=== PATIENT | female | born 1950 | race African-American/Black ===

== ENCOUNTER 2017-11-06 13:22 | Inpatient (IN) | payer MEDICARE, MEDICAID ==
[~2017-11-06 13:22] MED LIST: ISOVUE-370 76%-LOCM 1 ML ONE
[2017-11-06 15:00] LABS: Hematocrit 35.8 % (36.0-47.0); Mean Platelet Volume 9.2 fL (7.4-10.4); Red Blood Cell (RBC) Count 3.43 mill/uL (4.20-5.40); White Blood Cell (WBC) Count 5.5 thou/uL (4.8-10.8)
[2017-11-06 15:05] LABS: Lactic Acid - Sepsis 0.9 mmol/L (0.5-2.2)
[2017-11-06 15:10] LABS: ALT (SGPT) 9 U/L (8-55); AST (SGOT) 19 U/L (5-34); Alkaline Phosphatase 58 U/L (40-150); Anion Gap 12 mmol/L (10-20); BUN (Urea Nitrogen) 15 mg/dL (9.8-20.1); Bilirubin, Total 0.5 mg/dL (0.2-1.2); Calc. Creatinine Clearance 0 mL/min (70-130); Calcium 9.1 mg/dL (7.8-10.44); Carbon Dioxide 29 mmol/L (23-31); Chloride 105 mmol/L (98-107); Estimated GFR-MDRD Greater than 90; Globulin 4.4 g/dL (2.4-3.5); Protein, Total 8.1 g/dL (6.0-8.3)
[2017-11-06 15:14] LABS: Bilirubin Negative (Negative); Blood, Urine Negative (Negative); Glucose, Urine (Dipstick) Negative (Negative); Ketone, Urine Negative (Negative); Nitrite Negative (Negative); Protein, Urine (Dipstick) Negative (Neg-Trace); Urobilinogen 0.2 mg/dL (0.2-1.0)
[2017-11-06 15:16] LABS: Macrocytosis SLIGHT = 6-15 cells (100X) (0-5/hpf); Neutrophil 72 % (42-75); Polychromasia SLIGHT = 2-3 cells (100X) (0-2/hpf); Reactive Lymphocytes 2 % (0-10)
[2017-11-06 15:23] LABS: Troponin I Less than 0.010 ng/mL (< 0.028)
--- NOTE | 2017-11-06 15:50 | CT ---
CT ABDOMEN AND PELVIS WITH IV CONTRAST: History: Abdominal pain. Comparison: 03-08-13 FINDINGS: Small hiatal hernia is apparent. There is atelectasis at each lung base. Cysts arise from the cortex of each kidney. Liver, spleen, adrenal glands, and pancreas are within normal limits. Moderate distention of the colon primarily consists of gas with some fluid present. Small bowel does not appear to be dilated. IMPRESSION: 1. Gaseous distention with the appearance hypomotility of the colon. No evidence of high grade bowel obstruction. 2. Hiatal hernia. POS: [facility]
[2017-11-06] MEDS ORDERED: Benzocaine 20% Spray 60 ML CAN ONE (16:50)
--- NOTE | 2017-11-06 18:30 | RAD ---
PORTABLE CHEST 11/06/17 PROVIDED CLINICAL HISTORY: Abdominal distention. FINDINGS: Comparison is made with the study dated 03/07/13 and enteric catheter is present, tip of which project s in the region of the left upper quadrant. An enteric catheter is present, tip of which projects in the region of the left upper quadrant. There is conspicuous gaseous distention of bowel in a generali zed nonspecific manner. Please correlate with recently performed CT examination. The cardiomediastina l silhouette is unchanged in appearance. Atherosclerosis is seen. No focal consolidation, pleural flu id, or pneumothorax evident. IMPRESSION: 1. No evidence for an acute cardiopulmonary process. 2. Conspicuous gaseous distention of bowel. POS: [facility]
[2017-11-06] MEDS ORDERED: Acetaminophen 325 MG TAB PO PRN (20:10)
[2017-11-06] MEDS ORDERED: Ondansetron ODT 4 MG TAB SL PRN (20:10)
[2017-11-06] MEDS ORDERED: Ondansetron HCl/PF 4 MG/2 ML Vial IVP PRN (20:10)
[2017-11-06] MEDS: Lactated Ringer's 1,000 ML IV SCH (20:36)
[2017-11-06 21:59] VITALS: BMI 17.5
--- NOTE | 2017-11-07 | CON ---
DATE OF CONSULTATION: 11/06/2017 CHIEF COMPLAINT: Abdominal distention. HISTORY OF PRESENT ILLNESS: Ms. Graves is a 67-year-old long term patient who is noncommunicative . She was brought in for abdominal bloating. 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 She is unable to give any history, so history is obtained through co nversation with ER physician and chart review. There is no history from the long term of nausea, vomiting, fevers, or chills. She apparently had a bowel movement 2 days ago that was normal, but has been taking less in oral intake and more bloated according to the long term. PAST MEDICAL HISTORY: Hepatitis B, lifelong aphasia and developmental delay, hypertension, GERD, con stipation, and Amarilys's. PAST SURGICAL HISTORY: Tracheostomy and PEG tube placement. Also, history of exploratory laparotomy and repair of gastrostomy after PEG tube became displaced with later dehiscence of the abdominal wou nd and take back for closure. She has had colonoscopy and colon decompression tube placement as well . SOCIAL HISTORY: She is a resident of the long term in [place] and she is nonambulatory and nonver bal. No history of alcohol, drug, or tobacco use. FAMILY HISTORY: Not known. ALLERGIES: No known drug allergies. MEDICATIONS: According to the ER notes include Dulcolax suppositories twice daily, Lasix, potassium, vitamin D, Norvasc, Coreg, Klonopin, TwoCal HN, and Remeron. REVIEW OF SYSTEMS: Unobtainable. PHYSICAL EXAMINATION: VITAL SIGNS: Patient is afebrile in the emergency room with a normal heart rate and normal blood pre ssure. She has normal saturations on room air and is not tachypneic. GENERAL: Reveals a noncommunicative patient moaning in bed, but in no apparent acute distress. She is not flushed or toxic in appearance. She is not jaundiced or icteric. HEENT: Unremarkable. NECK: Stiff, but has no adenopathy or thyroid masses and she does move it spontaneously. HEART: Regular in its rate and rhythm without murmurs, rubs, or gallops. LUNGS: Clear, although due to frequent localization and breath sounds are somewhat difficult to appr eciate. ABDOMEN: Soft but distended. She has an NG tube in place with some slightly bloody appearing fluid draining. She has a healed laparotomy scar with a soft reducible hernia, which does not elicit any t enderness to palpation. Bowel sounds are present. She is tympanitic, but does not exhibit any obvio us pain with palpation. No rigidity, rebound, or guarding. NEUROLOGIC: Patient is noncommunicative, does not follow commands or answer questions. PSYCHIATRIC: Unable to assess. LABORATORY DATA AND X-RAY FINDINGS: White count is normal, hematocrit 35, platelets 147. Electrolyt es are unremarkable. Lipase and LFTs are normal. CK, CK-MB, and troponin are normal. C-reactive pr otein is mildly elevated at 0.98 and UA is clear. CT of the abdomen and pelvis is reviewed and I agr ee with the written report. The patient has gaseous distention of the colon without evidence of obst ruction. She has some stool scattered throughout her colon and some liquid stool on the right side p er rectum has stool and gas in it. She has a small hiatal hernia and moderate distention of the stom ach. Small bowel is not obviously dilated, although it is somewhat difficult to distinguish small lula wel from colon, most of the distended loops of bowel appeared to be colonic. ASSESSMENT: Likely Golf's is in a patient with history of this in the past. Recommend GI consult ation and no indications for surgery at this time, but if her condition deteriorates, please contact me.
[2017-11-07] MEDS: Lactated Ringer's 1,000 ML IV SCH (04:48)
[2017-11-07] MEDS: Dextrose 5 %-0.45 % NaCl 1,000 ML IV SCH (12:30)
--- NOTE | 2017-11-07 16:30 | CON ---
DATE OF CONSULTATION: 11/07/2017 HISTORY OF PRESENT ILLNESS: The patient is a 67-year-old female who is nonverbal, a jail resident, who presented with decreased appetite according to jail, who was note d abdominal distention. There has been no nausea or vomiting prior to her visit to the emergency batool m, she did not have a bowel movement in a day and half. The one she did have the day and a half prio r was normal and nonbloody. She has been evaluated in the past by Dr. Gage in 2012. At that time, chronic pseudoobstruction was noted and the patient did undergo a colonoscopy and the colonoscope was advanced to the distal transverse, no abnormalities were noted. A colonic decompression tube was pl aced. PAST MEDICAL/SURGICAL HISTORY: Includes mental retardation, osteoarthritis, gastroesophageal reflux disease, chronic hepatitis B, hypertension. PAST MEDICAL HISTORY: Includes exploratory lap dehiscence, G-tube dislodgement and a tracheostomy. ALLERGIES: No known medical allergies. MEDICATIONS: Include Bisacodyl 10 mg per rectum b.i.d., Lasix 20 mg every day, potassium chloride 10 mEq once a day, vitamin D3 1000 units every day, Norvasc 10 mg p.o. every day, Coreg 6.25 mg p.o. b. i.d., Klonopin 0.5 mg t.i.d., Remeron 15 mg p.o. daily. SOCIAL HISTORY: She is a jail resident. FAMILY HISTORY AND REVIEW OF SYSTEMS: Unobtainable. PHYSICAL EXAMINATION: GENERAL: Shows a thin, cachectic -[place]er female who is nonverbal. VITAL SIGNS: Temperature 99.5, pulse 82, respiratory rate 16, blood pressure 116/77. HEENT: Shows poor dentition. NECK: Supple. CHEST: Clear. CARDIOVASCULAR: Regular rate and rhythm. ABDOMEN: Slightly distended, diffusely tympanitic. Bowel sounds are present and hypoactive. There is a well-healed surgical scar. RECTAL: Shows soft stool in the vault. It seems to be somewhat dilated. EXTREMITIES: Show contractures. IMAGING: Abdominal and pelvic CT shows gaseous distention of the entire colon. No small-bowel obstr uction is noted. A hiatal hernia was seen as well. Chest x-ray was negative. Laboratory shows a wh ite blood cell count of 5.5, hemoglobin 11.6, hematocrit 35.5, MCV of 104, platelet count 147. Chemi stry panel is normal with a normal albumin level. Urinalysis is normal. ASSESSMENT: Chronic pseudoobstruction of the colon - this is a chronic problem and does not seem to be acutely changed. The fact that the patient has decreased appetite could be from a number of etiol ogies. The patient is not having nausea, vomiting, and continues to have bowel movements, I think sh e is in stable condition. RECOMMENDATIONS: 1. Continue bisacodyl. 2. PEG tube placement if the patient shows signs of malnutrition or continues to lose weight. 3. We will follow with you.
[2017-11-07] MEDS ORDERED: Acetaminophen 650 MG Suppository PR PRN (18:41)
[2017-11-08] MEDS: Dextrose 5 %-0.45 % NaCl 1,000 ML IV SCH ×3 (00:25→17:43)
[2017-11-08 05:32] LABS: #Lymphocytes 1.7 thou/uL (1.20-3.40); #Monocytes 0.4 thou/uL (0.11-0.59); #Neutrophils 3.9 thou/uL (1.40-6.50); %Eosinophils 0.6 % (0.0-10.0); %Lymphocytes 28.1 % (21.0-51.0); %Monocytes 6.3 % (0.0-10.0); Mean Platelet Volume 8.6 fL (7.4-10.4)
[2017-11-08 06:00] LABS: Anion Gap 11 mmol/L (10-20); BUN (Urea Nitrogen) 8 mg/dL (9.8-20.1); Calc. Creatinine Clearance 63 mL/min (70-130); Calcium 8.1 mg/dL (7.8-10.44); Carbon Dioxide 19 mmol/L (23-31); Chloride 105 mmol/L (98-107); Estimated GFR-MDRD Greater than 90
--- NOTE | 2017-11-08 06:09 | HP ---
DATE OF ADMISSION: 11/06/2017 REASON AND CHIEF COMPLAINT: Abdominal pain and distention. HISTORY OF PRESENT ILLNESS: Ms. Graves is a 67-year-old -[place] female with a past medical history of mental retardation, hypertension, chronic hepatitis B, now has a history of respiratory fa ilure, and was found to have abdominal distention and pain. The patient complained of abdominal pain . The patient's nurse went and evaluated and found the abdomen was markedly distended and that is norman rd to palpate. The nurse stated it was felt like a rock and she had constipation for a couple of day s. The patient has history of a gastrostomy tube, and bowel sounds were absent, so nurse felt the kalie mishra possibly has colonic intestinal obstruction with this abdominal pain, distention, and so she wa s sent to the emergency room for evaluation. In the ER, the patient was found to have markedly diste nded abdomen. CT scan of the abdomen showed distended colon. The patient was initially placed on an NG tube and it was removed and the patient was admitted for further evaluation and management. The patient received IV fluids. PAST MEDICAL HISTORY: 1. Hypertension. 2. Hyperlipidemia. 3. Severe mental retardation. 4. Osteoarthritis. 5. Gastroesophageal reflux disease. 6. Chronic hepatitis B. 7. Chronic pseudoobstruction of colon. 8. Status post colonoscopy with decompression in 2012. 9. History of respiratory failure, status post tracheostomy, removal of tracheostomy later. PAST SURGICAL HISTORY: Status post tracheostomy removal, status post PEG tube placement and removal later, and status post exploratory laparotomy. CURRENT MEDICATIONS: The patient is on Dulcolax suppositories daily, Lasix 20 mg daily, KCl 10 mEq d aily, vitamin D daily, Norvasc 10 mg daily, Coreg 6.25 b.i.d., Klonopin 0.5 three times daily, Remero n 15 mg daily. ALLERGIES: NKDA. FAMILY HISTORY: Nothing of interest. SOCIAL HISTORY: The patient is a resident of a care home. No history of smoking. No history of alcohol intake. REVIEW OF SYSTEMS: Unable to obtain. The patient has severe mental retardation and not communicatin g. PHYSICAL EXAMINATION: GENERAL: The patient is alert, awake, and not oriented. VITAL SIGNS: Temperature 99, pulse 82, respirations 20, blood pressure 114/60. HEENT: Head is normocephalic, atraumatic. Pupils are equal and reactive to light. Nasopharynx is p bradley and dry. NECK: Supple. No JVD. LUNGS: Bilateral air entry present. No rales, no rhonchi. HEART: S1 and S2 regular. ABDOMEN: Soft, mildly distended, tympanitic, mildly tender diffusely. Bowel sounds absent. Surgica l scar present. CENTRAL NERVOUS SYSTEM: No focal deficit. LABORATORY AND X-RAY FINDINGS: CBC shows WBC of 5.5, hemoglobin 11.7, hematocrit 35, platelets 147. Metabolic panel: Sodium 148, potassium 4.4, chloride 105, CO2 of 29, urea nitrogen 15, creatinine 0 .6, glucose 81. C-reactive protein 0.98. CK-MB 0.9. Troponin I less than 0.010. Urinalysis negati ve. Chest x-ray negative. CT scan of the abdomen showed gaseous distention of the colon. No eviden ce of high-grade bowel obstruction. ASSESSMENT: 1. Pseudoobstruction of the colon, possibly chronic. 2. Abdominal pain and distention secondary to pseudoobstruction of the colon. 3. Hypertension. 4. Mental retardation. 5. Chronic hepatitis B. 6. Osteoarthritis. 7. Gastroesophageal reflux disease. PLAN: 1. Vital signs q.4 hours. 2. Activity: As tolerated. 3. Allergies: NKDA. 4. Diet: N.p.o. 5. IV fluids D5 half normal at 100 mL per hour. 6. GI consult. 7. List of care home medications.
--- NOTE | 2017-11-08 08:06 | RAD ---
SUPINE AND LEFT DECUBITUS VIEWS ABDOMEN: DATE: 11/08/17. COMPARISON: Comparison is made to a previous CT abdomen from 11/06/17. FINDINGS: Two views abdomen demonstrate a large amount of stool seen in the colon. Abnormally dilated loops of small bowel and colon are seen. No definite evidence of significant air fluid level is seen. IMPRESSION: Large amount of stool in the colon possibly representing severe constipation. Could this be the caus e of the patient's bowel dilatation? No definite evidence of significant air fluid levels seen. POS: [facility]
[2017-11-08] MEDS: Bisacodyl 10 MG SUPP PR SCH (10:49)
[2017-11-08] MEDS ORDERED: Magnesium Citrate 300 ML BOT PO SCH (12:45)
--- NOTE | 2017-11-08 17:37 | PRG ---
DATE OF SERVICE: 11/08/2017 SUBJECTIVE: The patient adds nothing to history of present illness. She is nonverbal. OBJECTIVE: VITAL SIGNS: Temperature 98.1, pulse 72, respiratory rate 22, blood pressure 124/68. CHEST: Clear. CARDIOVASCULAR: Regular rate and rhythm. ABDOMEN: Slightly distended and tympanitic diffusely. Bowel sounds are present and normoactive. St ool occult blood is negative. LABORATORY AND IMAGING DATA: Sodium is 131, CO2 of 19, BUN 8, creatinine 0.58 and glucose 119. Whit e blood cell count was 6.0, hemoglobin 10 and hematocrit 31. Abdominal x-ray from today showed a lar ge amount of stool in the colon, possibly representing severe constipation. No air fluid levels. ASSESSMENT: 1. Chronic pseudoobstruction. 2. Constipation. 3. Mental retardation. RECOMMENDATIONS: 1. Agree with the magnesium citrate. 2. Dr. Ceja covering the weekend. Call if needed.
[2017-11-08] MEDS: Bisacodyl 5 MG TAB PO SCH (20:08)
[2017-11-08] MEDS: Carvedilol 6.25 MG TAB PO SCH (20:08)
[2017-11-08] MEDS: Mirtazapine 15 MG TAB PO SCH (20:09)
[2017-11-08] MEDS: clonazePAM 0.5 MG TAB PO SCH (20:09)
[2017-11-09] MEDS: Dextrose 5 %-0.45 % NaCl 1,000 ML IV SCH ×3 (03:33→21:31)
[2017-11-09] MEDS: Carvedilol 6.25 MG TAB PO SCH ×2 (08:11→20:25)
[2017-11-09] MEDS: Bisacodyl 5 MG TAB PO SCH ×2 (08:11→20:24)
[2017-11-09] MEDS: Polyethylene Glycol 3350 17 GM Packet PO SCH (08:12)
[2017-11-09] MEDS: Bisacodyl 10 MG SUPP PR SCH (08:12)
[2017-11-09] MEDS: clonazePAM 0.5 MG TAB PO SCH ×3 (08:12→20:25)
[2017-11-09] MEDS: Mirtazapine 15 MG TAB PO SCH (20:26)
[2017-11-10 08:39] VITALS: BP 125/75; TEMP 98
[2017-11-10] MEDS ORDERED: Amlodipine 5 MG TAB PO SCH (09:00)
[2017-11-10] MEDS: Polyethylene Glycol 3350 17 GM Packet PO SCH (09:50)
[2017-11-10] MEDS: Carvedilol 6.25 MG TAB PO SCH (09:50)
[2017-11-10] MEDS: Bisacodyl 5 MG TAB PO SCH (09:50)
[2017-11-10] MEDS: Bisacodyl 10 MG SUPP PR SCH (09:50)
[2017-11-10] MEDS: clonazePAM 0.5 MG TAB PO SCH (09:50)
== END 2017-11-10 12:28 | DRG 389 ==
LOC: ERS 13:22 → T4-B 18:05
PROVIDERS: ADMIT Internal Medicine; ATTEND Internal Medicine
DX: K56.609 Unspecified intestinal obstruction, unspecified as to partial versus complete obstruction (principal); B18.1 Chronic viral hepatitis B without delta-agent; R47.01 Aphasia; I10 Essential (primary) hypertension; F79 Unspecified intellectual disabilities; M19.90 Unspecified osteoarthritis, unspecified site; K21.9 Gastro-esophageal reflux disease without esophagitis; K59.00 Constipation, unspecified; R62.50 Unspecified lack of expected normal physiological development in childhood
CPT/HCPCS: 36415; 36416; 71010; 74020; 74177; 80048; 80053; 81003; 82274; 82553; 83605; 83690; 84484; 85025; 86140; 87086; 93005; 96360; A4353; G8996-GN-CL; G8997-GN-CL

== ENCOUNTER 2017-12-30 18:51 | Inpatient (IN) | payer MEDICARE, MEDICAID ==
[2017-12-30 19:49] LABS: #Eosinphils 0.1 thou/uL (0.0-0.7); #Lymphocytes 1.6 thou/uL (1.20-3.40); #Monocytes 0.4 thou/uL (0.11-0.59); #Neutrophils 2.8 thou/uL (1.40-6.50); %Basophils 0.9 % (0.0-1.0); %Lymphocytes 32.3 % (21.0-51.0); %Monocytes 8.7 % (0.0-10.0); %Neutrophils 56.2 % (42.0-75.0); Hemoglobin 12.5 g/dL (12.0-16.0); Mean Corpuscular HGB CONC 31.8 g/dL (32.0-36.0); Mean Platelet Volume 9.3 fL (7.4-10.4); Platelet Count 155 thou/uL (130-400); RBC Distribution Width 11.5 % (11.5-14.5); Red Blood Cell (RBC) Count 3.69 mill/uL (4.20-5.40)
[2017-12-30 20:00] LABS: Bilirubin Negative (Negative); Blood, Urine Negative (Negative); Clarity CLOUDY (Clear); Glucose, Urine (Dipstick) Negative (Negative); Leukocyte Moderate (Negative); Nitrite Positive (Negative); Protein, Urine (Dipstick) Negative (Neg-Trace); Specific Gravity, Urine 1.023 (1.002-1.036)
[2017-12-30 20:04] LABS: Bacteria/HPF 4+ HPF (None Seen); Hyaline Casts/LPF 0-3 HYALINE CAST LPF (0-3 Hyaline); RBC/HPF 0-3 HPF (0-3); Squamous Epithelial None Seen HPF (0-3); WBC/HPF 21-50 HPF (0-3)
[2017-12-30 20:06] LABS: ALT (SGPT) 15 U/L (8-55); AST (SGOT) 25 U/L (5-34); Albumin 3.6 g/dL (3.4-4.8); Alkaline Phosphatase 79 U/L (40-150); Anion Gap 11 mmol/L (10-20); BUN (Urea Nitrogen) 23 mg/dL (9.8-20.1); Bilirubin, Total 0.3 mg/dL (0.2-1.2); Calc. Creatinine Clearance 0 mL/min (70-130); Calcium 9.6 mg/dL (7.8-10.44); Carbon Dioxide 25 mmol/L (23-31); Chloride 103 mmol/L (98-107); Estimated GFR-MDRD Greater than 90; Globulin 4.5 g/dL (2.4-3.5); Glucose 71 mg/dL (80-115); Lipase 67 U/L (8-78); MDiff Complete? YES; Macrocytosis SLIGHT = 6-15 cells (100X) (0-5/hpf); PLT Morphology Comment Appears Adequate; Potassium 4.8 mmol/L (3.5-5.1); Protein, Total 8.1 g/dL (6.0-8.3); Sodium 134 mmol/L (136-145)
--- NOTE | 2017-12-30 20:07 | RAD ---
KUB AND UPRIGHT AND PA CHEST: Date: 12/30/17 HISTORY: Abdominal distention. FINDINGS: KUB AND UPRIGHT: There is marked gaseous distention of the abdomen, which is predominantly colonic. No free air demons trated. Surgical chain-type sutures seen in the left upper abdomen. PA CHEST: Heart size is slightly enlarged. There are atherosclerotic changes of the aorta. The lungs are clear of infiltrates. IMPRESSION: Marked gaseous distention of the abdomen. No signs for obstruction. POS: [facility]
[2017-12-30] MEDS ORDERED: traZODone HCl 50 MG TAB ONE (22:14)
[2017-12-30] MEDS ORDERED: Fleet Enema 133 ML BOT FS PRN (23:08)
[2017-12-30] MEDS ORDERED: Sodium Chloride 0.9% 1,000 ML IV SCH (23:09)
[2017-12-30] MEDS ORDERED: Ondansetron HCl/PF 4 MG/2 ML Vial IVP PRN (23:09)
[2017-12-30] MEDS ORDERED: Ondansetron ODT 4 MG TAB SL PRN (23:09)
[2017-12-30] MEDS ORDERED: Acetaminophen 325 MG TAB PO PRN (23:09)
[2017-12-31] MEDS ORDERED: FLU VACC TS2017-18 (>65YR) 0.5 ML SYRINGE IM ONE (09:00)
[2017-12-31] MEDS ORDERED: Labetalol HCl 100 MG/20 ML VIAL SLOW IVP PRN (13:23)
[2017-12-31 13:43] VITALS: BMI 18.1
[2017-12-31] MEDS: traZODone HCl 50 MG TAB PO SCH (21:35)
[2017-12-31] MEDS: Bisacodyl 5 MG TAB PO SCH (21:35)
[2017-12-31] MEDS: clonazePAM 0.5 MG TAB PO SCH (21:35)
[2017-12-31] MEDS: Simethicone Chewable 80 MG TAB PO SCH (21:36)
[2017-12-31] MEDS: Mirtazapine 15 MG Soltab PO SCH (21:36)
[2017-12-31] MEDS: Acetaminophen 500 MG TAB PO SCH (21:36)
[2017-12-31] MEDS: Carvedilol 6.25 MG TAB PO SCH (21:39)
--- NOTE | 2018-01-01 04:23 | HP ---
DATE OF ADMISSION: 12/30/2017 REASON/CHIEF COMPLAINT: Abdominal distention and pain. HISTORY OF PRESENT ILLNESS: Ms. Graves is a 67-year-old -[place] female with past medical history of colon pseudo-obstruction, chronic; hypertension, and mental retardation who was found to have abdominal distention. The patient complained of pain, but no evidence of any nausea or vomiting. The long term staff felt the abdomen was a bit firm and also tender. She had watery stools x2. The patient was sent to the hospital for further evaluation. PAST MEDICAL HISTORY: 1. Chronic pseudo-colonic obstruction. 2. Hypertension. 3. Hyperlipidemia. 4. Severe mental retardation. 5. History of arthritis. 6. Gastroesophageal reflux disease. 7. History of respiratory failure. PAST SURGICAL HISTORY: Status post PEG tube and removal, status post exploratory laparotomy. CURRENT MEDICATIONS: The patient is on Dulcolax suppository two b.i.d., amlodipine 5 mg daily, Coreg one tablet b.i.d. 6.25, vitamin D daily, Klonopin 0.5 mg t.i.d., Remeron 15 mg daily, MiraLax 1 packet daily 17 grams, simethicone one tablet t.i.d. 80 mg and trazodone 1 tablet 100 mg daily. ALLERGIES: NKDA. FAMILY HISTORY: Nothing of interest. SOCIAL HISTORY: The patient lives in a long term. No history of smoking or alcohol intake. REVIEW OF SYSTEMS: Unable to obtain from patient. According to the long term, the patient did not complain of any chest pain or shortness of breath. No fever or cough. No nausea or vomiting, has abdominal pain and distention. PHYSICAL EXAMINATION: GENERAL: The patient is alert and awake, not oriented. VITAL SIGNS: Temperature 98, pulse 70, respirations 20 and blood pressure 149/ 115. HEENT: Head is normocephalic and atraumatic. Pupils are equal and reactive to light. Nasopharynx is pale and dry. Hard and soft palate. No lesions seen. SKIN: Skin turgor decreased. NECK: Supple. No JVD. LUNGS: Bilateral air entry present. No rales, no rhonchi. HEART: S1 and S2 regular. ABDOMEN: Distended, slightly firm, mildly tender diffusely. No guarding, no rigidity. Bowel sounds present. CENTRAL NERVOUS SYSTEM: No focal deficits. LABORATORY FINDINGS: CBC shows a WBC of 5, hemoglobin 12.5, hematocrit 37 and platelets 155. Metabolic panel: Sodium 134, potassium 4.8, chloride 103, CO2 of 25, urea nitrogen 23, creatinine 0.7 and glucose 71. Urinalysis showing wbc' s 21-50 and bacteria 4+. X-RAY AND IMAGING FINDINGS: X-ray of the abdomen showed marked gaseous distention of the abdomen, no signs of obstruction. EKG, not done. ASSESSMENT: 1. Abdominal pain and distention. 2. Colonic obstruction and dilatation. 3. Urinary tract infection. 4. Constipation. 5. Hypertension. 6. Dementia. 7. Chronic hepatitis B. PLAN: 1. Vital signs q.4 hours. 2. Activity: As tolerated. 3. Allergies: NKDA. 4. IV fluids: Half normal at 70 mL per hour. 5. Diet: Full liquids, nectar thick. 6. Continue long term medications. 7. Levaquin 750 IV piggyback daily. The patient had enema with good result. MTDD
--- NOTE | 2018-01-01 08:26 | RAD ---
TWO VIEWS ABDOMEN: HISTORY: Abdominal pain. COMPARISON: . FINDINGS: Persistent marked gaseous distention involving the small bowel and colon. There appears to be air do wn to the level of the rectum. No evidence of pneumoperitoneum in the left lateral decubitus positio n. IMPRESSION: Persistent marked distention. POS: [facility]
[2018-01-01] MEDS: Bisacodyl 5 MG TAB PO SCH ×2 (08:37→22:43)
[2018-01-01] MEDS: clonazePAM 0.5 MG TAB PO SCH ×3 (08:37→22:42)
[2018-01-01] MEDS: Amlodipine 5 MG TAB PO SCH (08:37)
[2018-01-01] MEDS: Acetaminophen 500 MG TAB PO SCH ×4 (08:37→22:44)
[2018-01-01] MEDS: Carvedilol 6.25 MG TAB PO SCH ×2 (08:38→22:43)
[2018-01-01] MEDS: Simethicone Chewable 80 MG TAB PO SCH ×4 (08:39→22:44)
[2018-01-01] MEDS: Polyethylene Glycol 3350 17 GM Packet PO SCH (08:39)
--- NOTE | 2018-01-01 13:47 | PQF ---
CLINICAL DOCUMENTATION IMPROVEMENT CLARIFICATION FORM: ICD-10 Updated PLEASE DO AN ADDENDUM TO THE PROGRESS NOTE WITH ANY DOCUMENTATION UPDATES OR ADDITIONS AND CARRY THROUGH TO DC SUMMARY. THANK YOU. Date: 01/01 ATTN: DR. Jason STEPHENSON Please exercise your independent, professional judgment in responding to the clarification form. Clinical indicators are provided on the bottom of this form for your review. Please check appropriate box(s): [y ] Protein Calorie Malnutrition: [ y ] Mild [ ] Moderate [ ] Severe [ ] Other Malnutrition (please specify) __ [ ] Underweight without malnutrition [ ] Cachexia [ ] Other diagnosis [ ] Unable to determine Moderate Malnutrition (in acute illness) Energy Intake: <75% of estimated energy requirement for > 7 days Weight Loss: 1-2%/1 week; 5%/ 1 month; 7.5%/3 months Other: mild body fat loss; mild muscle mass loss; mild fluid accumulation; Severe Malnutrition (in acute illness) Energy Intake: < 50% of estimated energy requirement for > 5 days Weight Loss: >1-2%/1 week; >5%/1 month; >7.5%/3 months Other: moderate body fat loss; moderate muscle mass loss; moderate- severe fluid accumulation; measurably reduced fermentation manager strength CLINICAL INDICATORS - SIGNS / SYMPTOMS / LABS BMI: 18.1 HEALTH AND SAFETY DIRECTOR ASSESSMENT DOCUMENTATION 12/31: PER PREVIOUS ADMIT THE PATIENT WAS 96 # ON 11/06/17. BED SCALE DURING THIS VISIT READ 80.7#. 15% WEIGHT CHANGE IN 2 MONTHS; UNDERWEIGHT OLDER ADULT WITH LOW APPETITE. HIGH PRIORITY FOR FOLLOW-UP RISK FACTORS: SEVERE INTELLECTUAL DISABILITY COLONIC OBSTRUCTION DEPENDENT ON FEEDING ASSISTANCE TREATMENT: NUTRITION ASSESSMENT SPEECH CONSULT THANK YOU! Dorina (This form is maintained as a part of the permanent medical record) 2014 [employer]. All Rights Reserved Dorina Hernandez RN, BSN [email or web address] Office: [phone] [facility] NETWORKHector
[2018-01-01] MEDS: traZODone HCl 50 MG TAB PO SCH (22:42)
[2018-01-01] MEDS: Mirtazapine 15 MG Soltab PO SCH (22:44)
[2018-01-02 05:03] LABS: #Eosinphils 0.1 thou/uL (0.0-0.7); #Monocytes 0.4 thou/uL (0.11-0.59); #Neutrophils 3.3 thou/uL (1.40-6.50); %Lymphocytes 20.7 % (21.0-51.0); %Neutrophils 68.3 % (42.0-75.0); Hemoglobin 11.3 g/dL (12.0-16.0); Mean Corpuscular HGB CONC 32.9 g/dL (32.0-36.0); Mean Corpuscular Hemoglobin 34.1 pg (27.0-31.0); Mean Platelet Volume 9.2 fL (7.4-10.4); Platelet Count 139 thou/uL (130-400); RBC Distribution Width 11.4 % (11.5-14.5); Red Blood Cell (RBC) Count 3.32 mill/uL (4.20-5.40); White Blood Cell (WBC) Count 4.8 thou/uL (4.8-10.8)
[2018-01-02 05:22] LABS: Anion Gap 11 mmol/L (10-20); BUN (Urea Nitrogen) 7 mg/dL (9.8-20.1); Calc. Creatinine Clearance 48 mL/min (70-130); Calcium 9.2 mg/dL (7.8-10.44); Carbon Dioxide 24 mmol/L (23-31); Chloride 105 mmol/L (98-107); Estimated GFR-MDRD Greater than 90; Glucose 72 mg/dL (80-115); Sodium 136 mmol/L (136-145)
[2018-01-02] MEDS: Carvedilol 6.25 MG TAB PO SCH ×2 (08:06→23:17)
[2018-01-02] MEDS: Acetaminophen 500 MG TAB PO SCH ×4 (08:06→23:03)
[2018-01-02] MEDS: Amlodipine 5 MG TAB PO SCH (08:07)
[2018-01-02] MEDS: Bisacodyl 5 MG TAB PO SCH ×2 (08:07→23:03)
[2018-01-02] MEDS: clonazePAM 0.5 MG TAB PO SCH ×3 (08:07→23:03)
[2018-01-02] MEDS: Polyethylene Glycol 3350 17 GM Packet PO SCH (08:08)
[2018-01-02] MEDS: Simethicone Chewable 80 MG TAB PO SCH ×4 (08:09→23:03)
[2018-01-02] MEDS: traZODone HCl 50 MG TAB PO SCH (23:02)
[2018-01-02] MEDS: Mirtazapine 15 MG Soltab PO SCH (23:30)
[2018-01-03] MEDS: Polyethylene Glycol 3350 17 GM Packet PO SCH (08:35)
[2018-01-03] MEDS: Carvedilol 6.25 MG TAB PO SCH (08:35)
[2018-01-03] MEDS: Amlodipine 5 MG TAB PO SCH (08:36)
[2018-01-03] MEDS: clonazePAM 0.5 MG TAB PO SCH (08:36)
[2018-01-03] MEDS: Acetaminophen 500 MG TAB PO SCH ×2 (08:36→12:03)
[2018-01-03] MEDS: Simethicone Chewable 80 MG TAB PO SCH ×2 (08:36→12:04)
[2018-01-03] MEDS: Bisacodyl 5 MG TAB PO SCH (08:46)
[2018-01-03 13:12] VITALS: BP 117/75; TEMP 97.8
--- NOTE | 2018-01-04 13:00 | DIS ---
DATE OF ADMISSION: 12/30/2017 DATE OF DISCHARGE: 01/03/2018 ADMITTING DIAGNOSES: 1. Abdominal pain and distention. 2. Colonic obstruction and dilatation. 3. Urinary tract infection. 4. Constipation. 5. Hypertension. 6. Dementia. 7. Chronic hepatitis C. FINAL DIAGNOSES: 1. Abdominal pain and distention, resolved. 2. Colonic obstruction and dilatation, improved. 3. Urinary tract infection. 4. Constipation, improved. 5. Hypertension. 6. Dementia. BRIEF SUMMARY OF HOSPITAL COURSE: Ms. Pia Graves is a 67-year-old female admitte d because of abdominal distention and pain. The patient was found to have abdominal distention due t o colonic obstruction and dilatation. The patient was kept n.p.o. for a couple of days, given IV flu ids and she was given enema as well. Her constipation was treated and colonic obstruction was resolv ed. Her abdominal distention gradually came down. The patient was also found to have urinary tract infection. She was started on IV Rocephin. Cultures did not show any growth. The patient was start ed on a diet and she has tolerated diet very well. In view of improvement, she was discharged back t o assisted. By the time of discharge, she was stable. Her vital signs were stable. Lungs were clear. Heart sounds regular. Abdomen, soft and bowel sounds present. DISCHARGE MEDICATIONS: Include Klonopin 1 tablet b.i.d. 0.5 mg, MiraLax 17 grams daily, Remeron 15 m g daily, vitamin D daily, Coreg 6.25 b.i.d., Dulcolax 2 tablets b.i.d., amlodipine 5 mg daily, trazod one 100 mg at bedtime p.r.n., simethicone 80 mg q.i.d., Tylenol p.r.n., levofloxacin 750 daily for 1 week. FOLLOWUP: The patient will be followed up in 2 weeks.
== END 2018-01-03 15:48 | DRG 389 ==
LOC: ERS 18:51 → OBSVTOIN 22:47 → T4-B 22:47
PROVIDERS: ADMIT Internal Medicine; ATTEND Internal Medicine
DX: K56.609 Unspecified intestinal obstruction, unspecified as to partial versus complete obstruction (principal); F72 Severe intellectual disabilities; E44.0 Moderate protein-calorie malnutrition; B18.1 Chronic viral hepatitis B without delta-agent; N39.0 Urinary tract infection, site not specified; Z68.1 Body mass index [BMI] 19.9 or less, adult; F03.90 Unspecified dementia, unspecified severity, without behavioral disturbance, psychotic disturbance, mood disturbance, and anxiety; I10 Essential (primary) hypertension; E78.5 Hyperlipidemia, unspecified; K21.9 Gastro-esophageal reflux disease without esophagitis
CPT/HCPCS: 36415; 51701; 74019; 74022; 80048; 80053; 81003; 81015; 83605; 83690; 85025; 90471; 90682; 96365; A4353; G0008; G8996-GN-CM; G8997-GN-CM; J1956; Q2036

== ENCOUNTER 2018-02-01 11:48 | Emergency (ER) | payer MEDICARE, MEDICAID ==
[2018-02-01 12:27] LABS: #Eosinphils 0.1 thou/uL (0.0-0.7); #Monocytes 0.3 thou/uL (0.11-0.59); #Neutrophils 7.3 thou/uL (1.40-6.50); %Basophils 0.1 % (0.0-1.0); %Eosinophils 0.7 % (0.0-10.0); %Lymphocytes 11.8 % (21.0-51.0); %Monocytes 2.9 % (0.0-10.0); %Neutrophils 84.5 % (42.0-75.0); Hemoglobin 12.2 g/dL (12.0-16.0); Mean Corpuscular HGB CONC 31.6 g/dL (32.0-36.0); Mean Corpuscular Hemoglobin 32.6 pg (27.0-31.0); Mean Platelet Volume 10.1 fL (7.4-10.4); Platelet Count 147 thou/uL (130-400); RBC Distribution Width 11.7 % (11.5-14.5); Red Blood Cell (RBC) Count 3.74 mill/uL (4.20-5.40); White Blood Cell (WBC) Count 8.6 thou/uL (4.8-10.8)
[2018-02-01 12:55] LABS: INR-International Normal Ratio 1.2; PTT 28.6 SEC (22.9-36.1)
[2018-02-01 13:10] LABS: ALT (SGPT) 11 U/L (8-55); AST (SGOT) 19 U/L (5-34); Albumin 3.6 g/dL (3.4-4.8); Alkaline Phosphatase 60 U/L (40-150); Anion Gap 13 mmol/L (10-20); BUN (Urea Nitrogen) 18 mg/dL (9.8-20.1); Bilirubin, Total 0.6 mg/dL (0.2-1.2); Calc. Creatinine Clearance 0 mL/min (70-130); Calcium 9.4 mg/dL (7.8-10.44); Carbon Dioxide 23 mmol/L (23-31); Chloride 104 mmol/L (98-107); Estimated GFR-MDRD Greater than 90; Globulin 4.2 g/dL (2.4-3.5); Glucose 84 mg/dL (80-115); Potassium 4.5 mmol/L (3.5-5.1); Protein, Total 7.8 g/dL (6.0-8.3); Sodium 135 mmol/L (136-145)
== END 2018-02-01 14:27 ==
LOC: ERS 11:48
DX: R11.10 Vomiting, unspecified (principal); G47.00 Insomnia, unspecified; I10 Essential (primary) hypertension; D64.9 Anemia, unspecified; F41.9 Anxiety disorder, unspecified; F32.9 Major depressive disorder, single episode, unspecified; K21.0 Gastro-esophageal reflux disease with esophagitis; Z79.899 Other long term (current) drug therapy
CPT/HCPCS: 36415; 80053; 82274; 85025; 85610; 85730; 99285